=== PATIENT | male | born 1945 | race Asian ===

== ENCOUNTER → 2024-06-02 | Outpatient (CLI) | payer OTHER ==
[2024-06-02 12:18] LABS: APPEARANCE,URINE CLEAR (CLEAR); BILIRUBIN,URINE NEGATIVE (NEGATIVE); COLOR,URINE YELLOW (YELLOW); GLUCOSE, URINE (UA) >=1000 mg/dL (NEGATIVE); KETONES,URINE NEGATIVE (NEGATIVE); LEUKOCYTE ESTERASE ,URINE NEGATIVE (NEGATIVE); NITRATE,URINE NEGATIVE (NEGATIVE); OCCULT BLOOD,URINE TRACE (NEGATIVE); PH,URINE 5.5 (5.0-8.0); PROTEIN,URINE NEGATIVE (NEGATIVE); SPECIFIC GRAVITIY, URINE 1.026 (1.003-1.030); UROBILINOGEN,URINE <=1.0 mg/dL (<=1.0)
[2024-06-02 12:20] LABS: BACTERIA,URINE None Seen /HPF (None Seen); RBC,URINE 0-2 /HPF (0-2); WBC,URINE None Seen /HPF (0-5)
[2024-06-02 12:44] LABS: ALBUMIN 3.3 g/dL (3.4-5.0); CALCIUM, TOTAL 8.8 mg/dL (8.8-10.5); CREATININE 1.32 mg/dL (0.60-1.30); POTASSIUM 4.6 mmol/L (3.5-5.1); TOTAL PROTEIN, SERUM 7.2 g/dL (6.4-8.2)
== END | disposition home or self-care (01) ==
LOC: MSR 11:51
PROVIDERS: ATTEND Chiropractor
DX: M19.072 Primary osteoarthritis, left ankle and foot (principal); M79.89 Other specified soft tissue disorders; M77.32 Calcaneal spur, left foot; E11.9 Type 2 diabetes mellitus without complications
CPT/HCPCS: 80053; 81001